=== PATIENT | female | born 1985 | race Hispanic/Latino ===

== ENCOUNTER 2022-06-02 17:35 | Emergency (ER) | payer SELFPAY ==
--- OUTSIDE RECORDS SUMMARY | 2022-06-02 17:38 | XMS REPORT | Continuity of Care Document ---
:1985 Author Organization [facility] t Address [address] [place] [address] Care Team Providers Name Role Phone Unavailable Unavailable Unavailable Problems This patient has no known problems. Allergies, Adverse Reactions, Alerts This patient has no known allergies or adverse reactions. Medications This patient has no known medications. Procedures This patient has no known procedures. Encounters Start End Encounter Admission Attending Care Care Encounter Source Date/Time Date/Time Type Type Clinicians Facility Department ID 2022-05-27 2022-05-27 Outpatient [facility] [id number] 09:20:37 09:20:37 [id number] F Rk 2022-05-24 2022-05-24 Outpatient [facility] [id number] 16:05:14 16:05:14 [id number] F Rk Results Test Description Test Time Test Comments Results Result Comments Source HIV 1/2 4TH GEN, RFLX CONF 2022-05-28 03:48:34 Test Item Value Reference Range Interpretation Comme nts HIV 1/2 4TH GEN, RFLX CONF (test code = 3514) NON-REACTIVE NON-REAC TIVE [id number] 01:29:22 Test Item Value Reference Range Interpretation Comments RPR RESULT (test code = NON-REACTIVE NON-REACTIVE 3501) RPR TITER (test code = 3500) NOT INDIC. TITER NOT INDIC. CT/NG, NAAT, [id number] 20:44:55 Test Item Value Reference Range Interpretation Comments GONORRHEA, NAAT NEGATIVE NEGATIVE Testing is performed with (test code = [facility] 680 [address]1006[facility] systems usingre al-time polymerase kilo n reaction (PCR) method. A negative result does not exclude low level infection , specimensamplin g error, or collection erro r. CHLAMYDIA, NAAT NEGATIVE NEGATIVE Testing is performed with (test code = Evelyn BLAISE 680 47059) systems usingre al-time polymerase kilo n reaction (PCR) method. A negative result does not exclude low level infection , specimensamplin g error, or collection erro r. [facility] has important p athology staff changes e ffective 06/19/2022. New pathology staff will provide uninterrupted, excellent patient care an d clinical consultation. S ee URL: [email or web address]. UNLESS OTHE RWISE INDICATED, ALL TESTING PERFORMED AT [facility] [employer]. [address] [place], [place] CLIA: [id number], CAP: CT/NG, NAAT, [id number] 18:58:39 Test Item Value Reference Range Interpretation Comments GONORRHEA, NAAT NEGATIVE NEGATIVE IMPORTA NT NOTICE: SEE (test code = [place] [address]) [email or web address] Note: Assay methodology is nucleic acid amplification b y cot assembler m ediated amplification ( TMA) utilizing the A ptima Combo 2 Assay. CHLAMYDIA, NAAT NEGATIVE NEGATIVE IMPORTA NT NOTICE: SEE (test code = [place] [address]) [email or web address] Note: Assay methodology is nucleic acid amplification b y cot assembler m ediated amplification ( TMA) utilizing the A ptima Combo 2 Assay. HEMOGLOBIN [id number] 08:49:55 Test Item Value Reference Range Interpretation Comments HEMOGLOBIN A1c (test 5.7 % 4.2-5.6 H UNLESS OTHERWISE code = 78843) INDICATED, ALL TESTING PERFORMED [facility] [employer]. [address] [place] [address] TYREL PETRONA DIRECTOR: TIMMY HAINES M.D. CLIA NUMBER [id number] CAP ACCREDITATION N O. [id number] COMPREHENSIVE METABOLIC [id number] 05:04:10 Test Item Value Reference Range Interpretation Comments GLUCOSE (test code = 92 MG/DL 70-99 7) BUN (test code = 11 MG/DL 6-20 2207) CREATININE (test 0.64 MG/DL 0.60-1.30 code = 2214) eGFR (2020 CKD-EPI) 118 >60 (test code = 48284) ML/MIN/1.73 CALC BUN/CREAT (test 17 RATIO 6-28 code = 2235) SODIUM (test code = 138 MEQ/L 561-697 7808) POTASSIUM (test code 4.6 MEQ/L 3.5-5.4 = 2227) CHLORIDE (test code 103 MEQ/L 95-107 = 2214) CARBON DIOXIDE (test 23 MEQ/L 19-31 code = 220) CALCIUM (test code = 8.6 MG/DL 8.5-10.5 2208) PROTEIN, TOTAL (test 7.2 G/DL 6.1-8.3 code = 222) ALBUMIN (test code = 4.2 G/DL 3.5-5.2 2200) CALC GLOBULIN (test 3.0 G/DL 1.9-3.7 code = 224) CALC A/G RATIO (test 1.4 RATIO 1.0-2.6 code = 223) BILIRUBIN, TOTAL <0.2 MG/DL See_Comment [Automated message] (test code = 2207) The syste m which generated this result transmit ramila reference range : <=1.2. The refe rence range was not u sed to interpret th is result as normal/abnormal . ALKALINE PHOSPHATASE 83 U/L 40-114 (test code = 2204) AST (test code = 13 U/L 9-40 2217) ALT (test code = 14 U/L 5-40 2218) LIPID [id number] 05:04:10 Test Item Value Reference Range Interpretation Comments CHOLESTEROL (test 147 MG/DL <200 code = 2210) TRIGLYCERIDES (test 173 MG/DL <150 H code = 2232) HDL CHOLESTEROL (test 28 MG/DL >39 L code = 2220) CALC LDL CHOL (test 92 MG/DL <100 NOTE: C ALCULATED LDL code = 2237) IS BASED ON KIMBERLY-TIDWELL METHOD WHICHINCLUDES ADJUSTABLE TRIGLYCERIDE:VL DL CHOLESTEROL RAT IO.THIS FACTOR VARIES B Y MEASURED TRIGLY CERIDE AND NON-HDLCHOL ESTEROL CONCENTRATIONS WITH INCREASED CALCU LATED LDL SEENIN HIGH ER TRIGLYCERIDE OR LOWER NON-HDL SPECIME NS. FOR MOREINFORMATION , SEE CLIENT ANNOUNCE MENT AT [email or web address] RATIO LDL/HDL 3.29 RATIO <3.22 H (test code = 2238) HEPATITIS PANEL, [id number] 04:29:05 Test Item Value Reference Range Interpretation Comments HEPATITIS A IgM (test NON-REACTIVE NON-REACTIVE code = 88370) HEPATITIS B CORE IgM NON-REACTIVE NON-REACTIVE (test code = 4644) HEPATITIS B SURF AG NON-REACTIVE NON-REACTIVE (test code = 2739) HEPATITIS C ANTIBODY NON-REACTIVE NON-REACTIVE (test code = 4675) INTERPRETATION (NOTE) Hepatitis A HEPATITIS A: (test code sero logy shows no = 2552) evidence of acu te hepatitis A. INTERPRETATION (NOTE) Hepatitis B HEPATITIS B: (test code sero logy shows no = 24053) evidence of acu te hepatitis B and no indication of exposure to hepatitis B vir us in the previous kallie eight months. INTERPRETATION (NOTE) Hepatitis C HEPATITIS C: (test code sero logy shows no = 06719) evidence of exposure to hepatitisC viru s at this time. I t can take up to 12 months after exposure tothe hepatitis C vir us for antibodies to become detectab le in the blood in certain patient s. HIV 1/2 4TH GEN, RFLX [id number] 04:29:05 Test Item Value Reference Range Interpretation Comments HIV 1/2 4TH GEN, RFLX CONF (test NON-REACTIVE NON-REACTIVE code = 3514) TSH, THIRD [id number] 04:20:29 Test Item Value Reference Range Interpretation Comments TSH, THIRD GENERATION (test code 2.430 UIU/ML 0.400-4.100 = 2821) [id number] 02:52:25 Test Item Value Reference Range Interpretation Comments RPR RESULT (test code = NON-REACTIVE NON-REACTIVE 3501) RPR TITER (test code = 3500) NOT INDIC. TITER NOT INDIC. CBC W/AUTO DIFF WITH [id number] 02:17:35 Test Item Value Reference Range Interpretation Comments WBC (test code = 6.8 K/UL 3.5-11.0 1001) RBC (test code = 4.40 M/UL 3.80-5.40 1002) HEMOGLOBIN (test code 13.0 G/DL 11.5-15.5 = 1003) HEMATOCRIT (test code 37.9 % 34.0-45.0 = 1004) MCV (test code = 86.1 fL 80.0-99.0 1005) MCH (test code = 29.5 PG 25.0-33.0 1006) MCHC (test code = 34.3 G/DL 31.0-36.0 1007) RDW (test code = 13.3 % 11.5-15.0 1038) NEUTROPHILS (test 59.2 % code = 1008) LYMPHOCYTES (test 28.7 % code = 1010) MONOCYTES (test code 9.4 % = 1011) EOSINOPHILS (test 1.9 % code = 1012) BASOPHILS (test code 0.7 % = 1013) IMMATURE GRANULOCYTES 0.1 % (test code = 1036) NUCLEATED RBCS (test 0.0 /100 WBC'S See_Comment [Aut omated code = 1065) message] The sy stem which generated this result transmitted reference range : 0.0. The refere nce range was not u sed to interpret th is result as normal/abnormal . PLATELET COUNT (test 364 K/UL 130-400 code = 1015) ABSOLUTE NEUTROPHILS 4.04 K/UL 1.50-7.50 (test code = 1066) ABSOLUTE LYMPHOCYTES 1.96 K/UL 1.00-4.00 (test code = 1067) ABSOLUTE MONOCYTES 0.64 K/UL 0.20-1.00 (test code = 1068) ABSOLUTE EOSINOPHILS 0.13 K/UL 0.00-0.50 (test code = 1040) ABSOLUTE BASOPHILS 0.05 K/UL 0.00-0.20 (test code = 1069) ABS IMMATURE 0.01 K/UL 0.00-0.10 GRANULOCYTES (test code = 1020) ABS NUCLEATED RBCS 0.00 K/UL 0.00-0.11 (test code = 44275)
[2022-06-02 18:43] LABS: Absolute Lymphocytes (CBC) 4.4 K/uL (0.7-4.9); Hematocrit 38.2 % (36.0-45.0); MCV 87.6 fL (80-100); MPV 7.9 fL (7.6-11.3); RBC Red Blood Cell Count 4.36 M/uL (3.86-4.86)
[2022-06-02 18:48] LABS: Albumin 3.5 g/dL (3.4-5.0); Bilirubin Total 0.2 mg/dL (0.2-1.0); Protein, Total 7.3 g/dL (6.4-8.2)
--- NOTE | 2022-06-02 19:21 | RAD REPORT ---
EXAM DESCRIPTION: CT - CTHCSPWOC - 06/02/2022 7:15 pm CLINICAL HISTORY: Trauma, head and neck injury. Dizziness COMPARISON: Neck Angio dated 06/02/2022 TECHNIQUE: Axial 5 mm thick images of the head were obtained. Axial 2 mm thick images of the cervical spine were obtained with sagittal and coronal reconstruction images generated and reviewed. All CT scans are performed using dose optimization technique as appropriate and may include automated exposure control or mA/KV adjustment according to patient size. FINDINGS: CT HEAD WITHOUT CONTRAST: No acute hemorrhage, hydrocephalus or extra-axial collection is identified.No areas of brain edema or midline shift. The paranasal sinuses and mastoids are clear.The calvarium is intact. CT CERVICAL SPINE WITHOUT CONTRAST: No fracture or subluxation.No prevertebral soft tissues swelling is identified. IMPRESSION: No acute intracranial or cervical spine findings.
--- NOTE | 2022-06-02 19:23 | RAD REPORT ---
EXAM DESCRIPTION: CT - Neck Angio - 06/02/2022 7:16 pm CLINICAL HISTORY: dizziness Neck pain. COMPARISON: Head C Spine Mpr Wo Con dated 06/02/2022 TECHNIQUE: CT angiography of the neck vessels was performed with MIPs. All CT scans are performed using dose optimization technique as appropriate and may include automated exposure control or mA/KV adjustment according to patient size. FINDINGS: A left aortic arch is identified with normal three vessel configuration of the great vesse ls. No significant flow abnormality is seen of the common carotid bilaterally. No significant stenosis is identified involving the cervical segments of both internal carotid arteri es. Normal flow is seen within both vertebral arteries. IMPRESSION: No significant flow abnormality of the neck vessels is identified.
--- NOTE | 2022-06-02 19:37 | EDPHYS ---
Physician Documentation [facility] Name: Gita Gant Age: 37 yrs Sex: Female : 1985 Arrival Date: 06/02/2022 Time: 17:38 Bed 20 Private MD: ED Physician Augusto Pemberton HPI: 06/02 19:38 This 37 yrs old Female presents to ER via Ambulatory with complaints of Chest snw Pain, Arm Pain. 19:38 The patient or guardian complains of decreased range of motion, pain, that is acute, snw tenderness. left lateral aspect of neck and left posterior aspect of neck and left arm. Context: The problem was sustained at home, resulted from an unknown reason, The patient experiences decreased range of motion, when attempts to raise arm, The patient reports no obvious deformity. Onset: The symptoms/episode began/occurred acutely. Modifying factors: the symptoms are alleviated by nothing. The symptoms are aggravated by lifting weight, rotation of arm. Associated signs and symptoms: The patient has no apparent associated signs or symptoms. Severity of symptoms: At their worst the symptoms were moderate. Treatment prior to arrival includes: went to , took prednisone, motrin 800mg, pain is no better. The patient has not experienced similar symptoms in the past. 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 - Social history:: Smoking status: Patient denies any tobacco usage or history of. ROS: 19:44 Constitutional: Negative for fever, chills, and weight loss, Eyes: Negative for injury, snw pain, redness, and discharge, ENT: Negative for injury, pain, and discharge. 19:44 Cardiovascular: Negative for chest pain, palpitations, and edema, Respiratory: Negative for shortness of breath, cough, wheezing, and pleuritic chest pain, Abdomen/GI: Negative for abdominal pain, nausea, vomiting, diarrhea, and constipation, Back: Negative for injury and pain, : Negative for injury, bleeding, discharge, and swelling. 19:44 Neck: Positive for pain with movement, pain at rest. 19:44 MS/extremity: Positive for decreased range of motion, pain, paresthesias, of the left arm and left lateral aspect of neck and left posterior aspect of neck. Exam: 19:31 Constitutional: This is a well developed, well nourished patient who is awake, alert, snw and in no acute distress. Head/Face: Normocephalic, atraumatic. Eyes: Pupils equal round and reactive to light, extra-ocular motions intact. Lids and lashes normal. Conjunctiva and sclera are non-icteric and not injected. Cornea within normal limits. Periorbital areas with no swelling, redness, or edema. ENT: Nares patent. No nasal discharge, no septal abnormalities noted. Tympanic membranes are normal and external auditory canals are clear. Oropharynx with no redness, swelling, or masses, exudates, or evidence of obstruction, uvula midline. Mucous membranes moist. Chest/axilla: Normal chest wall appearance and motion. Nontender with no deformity. No lesions are appreciated. Cardiovascular: Regular rate and rhythm with a normal S1 and S2. No gallops, murmurs, or rubs. Normal PMI, no JVD. No pulse deficits. Respiratory: Lungs have equal breath sounds bilaterally, clear to auscultation and percussion. No rales, rhonchi or wheezes noted. No increased work of breathing, no retractions or nasal flaring. Abdomen/GI: Soft, non-tender, with normal bowel sounds. No distension or tympany. No guarding or rebound. No evidence of tenderness throughout. Back: No spinal tenderness. No costovertebral tenderness. Full range of motion. Skin: Warm, dry with normal turgor. Normal color with no rashes, no lesions, and no evidence of cellulitis. Neuro: Awake and alert, GCS 15, oriented to person, place, time, and situation. Cranial nerves II-XII grossly intact. Motor strength 5/5 in all extremities. Sensory grossly intact. Cerebellar exam normal. Normal gait. Psych: Awake, alert, with orientation to person, place and time. Behavior, mood, and affect are within normal limits. 19:31 Neck: External neck: is normal, tenderness, that is moderate, of the left posterior aspect of neck and left lateral aspect of neck. 19:31 Musculoskeletal/extremity: Extremities: grossly normal except: noted in the left arm: tenderness, ROM: limited passive range of motion due to pain, in the left arm, Circulation is intact in all extremities. Sensation intact. Vital Signs: 17:42 BP 138 / 98; Pulse 80; Resp 18; Temp 97.6; Pulse Ox 99% ; Weight 71.67 kg; Height 4 ft. ko1 11 in. (149.86 cm); 18:07 BP 121 / 77; Pulse 83; Resp 24; Pulse Ox 100% on R/A; Pain 7/10; hb 19:23 BP 122 / 75; Pulse 86; Resp 20; Pulse Ox 97% on R/A; ha1 20:09 BP 107 / 73; Pulse 87; Resp 18 S; Pulse Ox 99% on R/A; ha1 17:42 Body Mass Index 31.91 (71.67 kg, 149.86 cm) ko1 MDM: 17:56 Patient medically screened. snw 19:42 Differential diagnosis: DJD, tendonitis, vascular headache, vascular dissection. Data snw reviewed: vital signs, nurses notes, lab test result(s), radiologic studies. Counseling: I had a detailed discussion with the patient and/or guardian regarding: the historical points, exam findings, and any diagnostic results supporting the discharge/admit diagnosis, lab results, radiology results, the need for outpatient follow up, for definitive care, to return to the emergency department if symptoms worsen or persist or if there are any questions or concerns that arise at home. Special discussion: Based on the patient's history, exam, and Dx evaluation, there is no indication for emergent intervention or inpatient Tx. It is understood by the patient/guardian that if the Sx's persist or worsen they need to return immediately for re-evaluation. Based on the patient's history, exam and DX evaluation, there is no indication for emergent intervention or inpatient [place]. It is understood by the patient/guardian that if the SXs persist or worsen they need to return immediately for re-evaluation. Based on the history and exam findings, there is no indication for further emergent testing or inpatient evaluation. I discussed with the patient/guardian the need to see the neurologist for further evaluation of the symptoms. I discussed with the patient/guardian the need to see the primary care provider for further evaluation of the symptoms. 06/02 18:07 Order name: CBC with Diff snw 06/02 18:07 Order name: CMP snw 06/02 18:07 Order name: CT Head C Spine snw 06/02 18:07 Order name: CT Neck Angio snw 06/02 18:44 Order name: CBC with Automated Diff; Complete Time: 18:49 EDMS 06/02 18:48 Order name: Comprehensive Metabolic Panel; Complete Time: 18:49 EDMS 06/02 18:07 Order name: SL; Complete Time: 18:32 snw 06/02 19:22 Order name: CT; Complete Time: 19:27 EDMS 06/02 19:23 Order name: CT; Complete Time: 19:27 EDMS Administered Medications: 19:40 Drug: Valium (diazepam) 5 mg Route: IVP; Site: left antecubital; ha1 20:08 Follow up: Response: No adverse reaction; Pain is decreased; RASS: Alert and Calm (0) ha1 Disposition Summary: 06/02/22 19:37 Discharge Ordered Location: Home snw Condition: Stable snw Diagnosis - Radiculopathy, cervical region snw Followup: snw - With: Emergency Department - When: As needed - Reason: Worsening of condition Followup: snw - With: Private Physician - When: 2 - 3 days - Reason: Recheck today's complaints, Continuance of care, Re-evaluation by your physician Discharge Instructions: - Discharge Summary Sheet snw - Cervical Radiculopathy snw - Heat Therapy snw - Radicular Pain snw Forms: - Medication Reconciliation Form snw - Thank You Letter snw - Antibiotic Education snw - Prescription Opioid Use snw Prescriptions: - orphenadrine citrate 100 mg Oral Tablet Sustained Release - take 1 tablet by ORAL route 2 times per day As needed; 20 tablet; Refills: 0, snw Product Selection Permitted Signatures: Dispatcher [employer] EDMS Justa Dick, ASSOCIATE MERCHANT-C ASSOCIATE MERCHANT-Cs[employer] Monique Davison, RN RN ha1 Yoly Tubbs, RN RN ko1
--- NOTE | 2022-06-02 19:37 | ER ---
Nurse's Notes [facility] Name: Gita Gant Age: 37 yrs Sex: Female : 1985 Arrival Date: 06/02/2022 Time: 17:38 Bed 20 Private MD: Diagnosis: Radiculopathy, cervical region Presentation: 06/02 17:42 Chief complaint: Patient states: left neck, headache and now chest is hurting. Not ko1 short of breath, no nausea, no vomiting. Went to the clinic last week and was given ibuprofen and steroids for either ears or throat. No sore throat. Coronavirus screen: At this time, the client does not indicate any symptoms associated with coronavirus-19. Ebola Screen: No symptoms or risks identified at this time. Initial Sepsis Screen: Does the patient meet any 2 criteria? No. Patient's initial sepsis screen is negative. Does the patient have a suspected source of infection? No. Patient's initial sepsis screen is negative. Risk Assessment: Do you want to hurt yourself or someone else? Patient reports no desire to harm self or others. Onset of symptoms was May 20, 2022 at 08:00. 17:42 Method Of Arrival: Ambulatory ko1 17:42 Acuity: JESSICA 3 ko1 Triage Assessment: 17:45 General: Appears in no apparent distress. uncomfortable, Behavior is calm, cooperative, ko1 appropriate for age. Pain: Complains of pain in neck, head and chest. Cardiovascular: Reports chest pain, Denies diaphoresis, fatigue, nausea, palpitations, shortness of breath, syncope, vomiting. 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 - Social history:: Smoking status: Patient denies any tobacco usage or history of. Screenin:05 [facility] ED Fall Risk Assessment (Adult) Score/Fall Risk Level 0 - 2 = Low Risk hb Oriented to surroundings, Maintained a safe environment, Educated pt \T\ family on fall prevention, incl call for assistance when getting out of bed. Abuse screen: Denies threats or abuse. Denies injuries from another. Nutritional screening: No deficits noted. Tuberculosis screening: No symptoms or risk factors identified. Assessment: 18:05 General: Appears in no apparent distress. Behavior is calm, cooperative. Pain: Pain hb currently is 7 out of 10 on a pain scale. Neuro: Level of Consciousness is awake, alert, obeys commands, Oriented to person, place, time, situation. Cardiovascular: Denies chest pain, Patient's skin is warm and dry. Respiratory: Respiratory effort is even, unlabored, Respiratory pattern is regular, symmetrical. GI: No signs and/or symptoms were reported involving the gastrointestinal system. : No signs and/or symptoms were reported regarding the genitourinary system. EENT: No signs and/or symptoms were reported regarding the EENT system. Derm: Skin is pink, warm \T\ dry. Musculoskeletal: Reports left sided neck and arm pain. 19:19 Reassessment: back from CT. General: Appears comfortable, Behavior is calm, ha1 cooperative. Pain: Complains of pain in chest and left arm Pain currently is 8 out of 10 on a pain scale. Quality of pain is described as pressure, tender, Pain began suddenly. Neuro: Level of Consciousness is awake, alert, obeys commands, Oriented to person, place, time, situation. Cardiovascular: Reports chest pain, Heart tones S1 S2 present Capillary refill < 3 seconds Patient's skin is warm and dry. Respiratory: Airway is patent Respiratory effort is even, unlabored, Respiratory pattern is regular, symmetrical. GI: No signs and/or symptoms were reported involving the gastrointestinal system. Abdomen is flat, non-distended, Bowel sounds present X 4 quads. : No signs and/or symptoms were reported regarding the genitourinary system. EENT: No signs and/or symptoms were reported regarding the EENT system. Derm: Skin is pink, warm \T\ dry. Musculoskeletal: Circulation, motion, and sensation intact. Reports pain in left arm. 20:08 Reassessment: Patient and/or family updated on plan of care and expected duration. Pain ha1 level reassessed. Patient is alert, oriented x 3, equal unlabored respirations, skin warm/dry/pink. Patient states symptoms have improved. Vital Signs: 17:42 BP 138 / 98; Pulse 80; Resp 18; Temp 97.6; Pulse Ox 99% ; Weight 71.67 kg; Height 4 ft. ko1 11 in. (149.86 cm); 18:07 BP 121 / 77; Pulse 83; Resp 24; Pulse Ox 100% on R/A; Pain 7/10; hb 19:23 BP 122 / 75; Pulse 86; Resp 20; Pulse Ox 97% on R/A; ha1 20:09 BP 107 / 73; Pulse 87; Resp 18 S; Pulse Ox 99% on R/A; ha1 17:42 Body Mass Index 31.91 (71.67 kg, 149.86 cm) ko1 ED Course: 17:38 Patient arrived in ED. mr 17:41 Justa Dick FNP-C is PHCP. snw 17:41 Augusto Pemberton MD is Attending Physician. snw 17:45 Triage completed. ko1 17:45 Arm band placed on right wrist. Patient placed in an exam room, Patient notified of ko1 wait time. 17:58 Carolyne Chávez, RN is Primary Nurse. hb 18:05 Patient has correct armband on for positive identification. Client placed on continuous hb cardiac and pulse oximetry monitoring. NIBP monitoring applied. 18:05 Patient maintains SpO2 saturation greater than 95% on room air. hb 18:25 Inserted saline lock: 22 gauge in left antecubital area, using aseptic technique. Blood hb collected. 18:32 CBC with Diff Sent. hb 18:32 CMP Sent. hb 20:09 No provider procedures requiring assistance completed. IV discontinued, intact, ha1 bleeding controlled, No redness/swelling at site. Pressure dressing applied. Administered Medications: 19:40 Drug: Valium (diazepam) 5 mg Route: IVP; Site: left antecubital; ha1 20:08 Follow up: Response: No adverse reaction; Pain is decreased; RASS: Alert and Calm (0) ha1 Medication: 18:05 VIS not applicable for this client. hb Outcome: 19:37 Discharge ordered by . snw 20:09 Discharged to home via wheelchair. ha1 20:09 Condition: stable 20:09 Discharge instructions given to patient, family, Instructed on discharge instructions, follow up and referral plans. medication usage, Demonstrated understanding of instructions, follow-up care, medications, Prescriptions given X 1. 20:10 Patient left the ED. ha1 Signatures: Justa Dick FNP-C BLENDER MACHINE OPERATOR-Adalidw Rowena Mehta mr Carolyne Chávez RN RN Monique Davison RN RN ha1 Yoly Tubbs RN RN ko1 Corrections: (The following items were deleted from the chart) 19:42 19:19 Pain: Complains of pain in chest and left arm Pain currently is 5 out of 10 on a ha1 pain scale. Quality of pain is described as pressure, tender, Pain began suddenly, ha1
[2022-06-02] MEDS ORDERED: DIAZEPAM 10 MG/2 ML INJ SYRINGE ONE (19:40)
[2022-06-02 20:21] VITALS: TEMP 97.6
[2022-06-02 20:38] VITALS: BP 107/73; O2SAT 99
--- NOTE | 2022-06-04 17:18 | EKG ---
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
== END 2022-06-02 20:10 | disposition home or self-care (01) ==
LOC: ER 17:35
DX: M54.12 Radiculopathy, cervical region (principal)
CPT/HCPCS: 36415; 70450; 70498; 72125; 80053; 85025; 93005; 96374; 99284; J3360; Q9967